=== PATIENT | female | born 2000 | race Two or more races ===

== ENCOUNTER 2019-02-19 16:54 | Observation (INO) | payer MEDICAID ==
[~2019-02-19] VITALS: Ht 152.4 cm; Wt 85.3 kg
[2019-02-19] MEDS ORDERED: PREN1TAB78 MT (17:08)
[2019-02-19] MEDS ORDERED: LACTATED RINGERS 1,000 ML IV SCH (17:30)
== END 2019-02-19 18:55 | disposition home or self-care (01) ==
LOC: 8 EST LDRP 16:54
PROVIDERS: ADMIT Obstetrics & Gynecology; ATTEND Obstetrics & Gynecology
DX: O36.8130 Decreased fetal movements, third trimester, not applicable or unspecified (principal); Z3A.39 39 weeks gestation of pregnancy
CPT/HCPCS: 76815; 76818; G0378

== ENCOUNTER 2019-02-21 06:07 | Inpatient (IN) | payer MEDICAID ==
[~2019-02-21] VITALS: Ht 152.4 cm; Wt 86.2 kg
[~2019-02-21 06:07] MED LIST: PREN1TAB78 MT
[2019-02-21] MEDS ORDERED: LACTATED RINGERS 1,000 ML IV STA (06:41)
[2019-02-21] MEDS ORDERED: CITRIC ACID/SODIUM CITRATE SOLN 30ML UDC PO ONE (07:00)
[2019-02-21] MEDS ORDERED: FENTANYL CITRATE/PF 50MCG/ML 2ML VIAL ONE (07:04)
[2019-02-21] MEDS ORDERED: OXYTOCIN 10 UNITS/ML 1ML ONE ×2 (07:04→10:24)
[2019-02-21] MEDS ORDERED: GLYCOPYRROLATE 0.2 MG/ML 2ML VIAL ONE (07:04)
[2019-02-21] MEDS ORDERED: METOCLOPRAMIDE HCL 10MG/2ML VIAL ONE (07:04)
[2019-02-21] MEDS ORDERED: PHENYLEPHRINE HCL 10 MG/ML 1ML (IV VIAL) IV ONE (07:04)
[2019-02-21] MEDS ORDERED: EPHEDRINE SULFATE 50MG/ML VIAL ONE (07:04)
[2019-02-21] MEDS ORDERED: ONDANSETRON HCL 4MG/2ML INJ ONE (07:04)
[2019-02-21] MEDS ORDERED: MORPHINE SULFATE/PF 1MG/ML 10ML AMP ONE (07:04)
[2019-02-21] MEDS ORDERED: CEFAZOLIN SODIUM 1000MG/VIAL ONE (07:05)
[2019-02-21] MEDS ORDERED: SODIUM CHLORIDE 0.9% 10ML VIAL ONE ×2 (07:05→07:10)
[2019-02-21 07:30] LABS: BASOPHILS % 0.3 % (0.0-2.0); EOSINOPHILS % 0.7 % (0.0-5.0); HEMOGLOBIN. 7.3 g/dL (12.0-16.0); LYMPHOCYTES % 23.1 % (20.0-50.0); MEAN CORPUSCULAR HEMOGLOBIN 18.6 pg (28.0-32.0); MEAN PLATELET VOLUME 8.7 fl (7.4-10.4); MONOCYTES % 5.7 % (2.0-8.0); NEUTROPHILS % 70.2 % (40.0-76.0); PLATELET 272 x1000/uL (130-400); RED BLOOD CELL COUNT 3.94 mill/uL (4.2-5.4); RED CELL DISTRIBUTION WIDTH 20.4 % (11.6-14.6)
[2019-02-21 07:39] LABS: INR 0.9; PARTIAL THROMBOPLASTIN TIME 23.8 sec (23.4-31.0); PROTHROMBIN TIME 9.4 sec (9.6-11.0)
[2019-02-21 07:54] LABS: PLATELET ESTIMATE NORMAL
[2019-02-21] MEDS ORDERED: LIDOCAINE HCL/PF 1% 10 MG/ML 5ML VIAL ONE (08:11)
[2019-02-21 08:19] LABS: HEPATITIS B SURFACE ANTIGEN NEGATIVE
[2019-02-21 08:48] LABS: CLARITY URINE CLEAR (CLEAR); COLOR URINE YELLOW (YELLOW); KETONES URINE NEGATIVE (NEGATIVE); LEUKOCYTE ESTERASE URINE TRACE (NEGATIVE); NITRITE URINE NEGATIVE (NEGATIVE); OCCULT BLOOD URINE NEGATIVE (NEGATIVE); PH URINE 6.5 (4.5-8.0); PROTEIN URINE NEGATIVE (NEGATIVE); SPECIFIC GRAVITY URINE 1.015 (1.005-1.030); UROBILINOGEN URINE 0.2 E.U./dL (0.2-1.0)
[2019-02-21 09:08] LABS: *AMPHETAMINES SCREEN URINE NEGATIVE (NEGATIVE); *BARBITURATES SCREEN URINE NEGATIVE (NEGATIVE); *BENZODIAZEPINES SCREEN URINE NEGATIVE (NEGATIVE); *COCAINE SCREEN URINE NEGATIVE (NEGATIVE)
[2019-02-21 09:09] LABS: CANNABINOID URINE SCREEN NEGATIVE (NEGATIVE); METHADONE URINE SCREEN NEGATIVE (NEGATIVE); OPIATES URINE SCREEN NEGATIVE (NEGATIVE)
[2019-02-21 09:11] LABS: PHENCYCLIDINE URINE SCREEN NEGATIVE (NEGATIVE)
[2019-02-21] MEDS ORDERED: DIPHENHYDRAMINE 50MG/ML VIAL ONE (10:31)
[2019-02-21] MEDS ORDERED: KETOROLAC 60MG/2ML VIAL IM ONE (10:49)
[2019-02-21] MEDS ORDERED: RHO(D) IMMUNE GLOBULIN 300 MCG/SYR IM PRN (11:00)
[2019-02-21] MEDS ORDERED: HYDROCODONE/ACETAMINOPHEN 5/325MG TABLET PO PRN (11:00)
[2019-02-21] MEDS ORDERED: IBUPROFEN 400MG TABLET PO PRN (11:00)
[2019-02-21] MEDS ORDERED: ONDANSETRON HCL 4MG/2ML INJ IV PRN (11:00)
[2019-02-21] MEDS ORDERED: LANOLIN OINT 7GM TUBE TOP PRN (11:00)
[2019-02-21] MEDS ORDERED: BUTORPHANOL TARTRATE 2 MG/ML VIAL IV PRN (11:45)
[2019-02-21] MEDS ORDERED: DIPHENHYDRAMINE 50MG/ML VIAL IV PRN (11:45)
[2019-02-21] MEDS ORDERED: NALOXONE HCL 0.4 MG/ML 1ML VIAL IV PRN (11:45)
[2019-02-21] MEDS: DEXT 5%/LR + PITOCIN 20UNITS/L 1,000 ML IV SCH ×2 (12:47→21:21)
[2019-02-21 14:29] VITALS: BP 124/70
[2019-02-21 15:00] VITALS: BP 117/65
[2019-02-21 19:45] VITALS: BP 104/62
[2019-02-21] MEDS ORDERED: DOCUSATE SODIUM 100MG CAPSULE PO SCH (21:00)
[2019-02-22] VITALS: BP 114/65
[2019-02-22] MEDS: KETOROLAC 30MG/ML VIAL IV SCH ×2 (01:13)
[2019-02-22 04:00] VITALS: BP 116/64
[2019-02-22 06:38] LABS: BASOPHILS % 0.6 % (0.0-2.0); EOSINOPHILS % 0.4 % (0.0-5.0); HEMATOCRIT. 22.6 % (36.0-48.0); LYMPHOCYTES % 18.4 % (20.0-50.0); MEAN CORPUSCULAR HEMOGLOBIN 18.5 pg (28.0-32.0); MEAN CORPUSCULAR VOLUME 61.4 fL (81.0-99.0); MEAN PLATELET VOLUME 8.6 fl (7.4-10.4); MONOCYTES % 5.8 % (2.0-8.0); NEUTROPHILS % 74.8 % (40.0-76.0); PLATELET 241 x1000/uL (130-400); RED BLOOD CELL COUNT 3.68 mill/uL (4.2-5.4); RED CELL DISTRIBUTION WIDTH 20.2 % (11.6-14.6)
[2019-02-22 06:43] LABS: HEMOGLOBIN. 6.8 g/dL (12.0-16.0)
[2019-02-22 08:00] VITALS: BP 116/63
[2019-02-22] MEDS: PRENATAL VIT/FE FUMARATE/FA TABLET PO SCH (09:25)
[2019-02-22] MEDS: ACETAMINOPHEN WITH CODEINE 300/30MG TABLET PO PRN ×2 (10:51→17:54)
[2019-02-22 16:00] VITALS: BP 115/59
[2019-02-22 19:30] VITALS: BP 120/64
[2019-02-23] MEDS: ACETAMINOPHEN WITH CODEINE 300/30MG TABLET PO PRN (03:27)
[2019-02-23 04:00] VITALS: BP 120/69
[2019-02-23 07:49] VITALS: BP 122/58
[2019-02-23] MEDS: PRENATAL VIT/FE FUMARATE/FA TABLET PO SCH (09:23)
== END 2019-02-23 13:05 | disposition home or self-care (01) | DRG 540 ==
LOC: 8 EST LDRP 06:07 → 8EST 14:25
PROVIDERS: ADMIT Obstetrics & Gynecology; ATTEND Obstetrics & Gynecology
PROC: 10D00Z1 Extraction of Products of Conception, Low, Open Approach (ICD-10-PCS; principal; 2019-02-21)
DX: O34.219 Maternal care for unspecified type scar from previous cesarean delivery (principal); O90.81 Anemia of the puerperium; Z37.0 Single live birth; Z3A.39 39 weeks gestation of pregnancy
CPT/HCPCS: 36415; 80305; 81003; 86592; 86703; 86762; 86850; 86900; 86920; 87340; 96360; 99281; J0595; J0690; J1200; J1885; J2274; J2370; J2405; J2590; J2765; J3010; J3490; A4315

== ENCOUNTER 2019-02-26 23:33 | Emergency (ER) | payer MEDICAID ==
[~2019-02-26] VITALS: Ht 152.4 cm; Wt 81.0 kg
[2019-02-27] MEDS ORDERED: ONDANSETRON HCL 4MG/2ML INJ IV SCH (01:10)
[2019-02-27] MEDS ORDERED: KETOROLAC 30MG/ML VIAL IV SCH (01:10)
[2019-02-27] MEDS ORDERED: SODIUM CHLORIDE 0.9% 1,000 ML IV ONE (01:10)
[2019-02-27 02:14] LABS: BASOPHILS % 0.5 % (0.0-2.0); EOSINOPHILS % 1.7 % (0.0-5.0); HEMATOCRIT. 23.2 % (36.0-48.0); LYMPHOCYTES % 22.7 % (20.0-50.0); MEAN CORPUSCULAR HEMOGLOBIN 18.8 pg (28.0-32.0); MEAN CORPUSCULAR VOLUME 62.6 fL (81.0-99.0); MEAN PLATELET VOLUME 8.8 fl (7.4-10.4); MONOCYTES % 5.5 % (2.0-8.0); NEUTROPHILS % 69.6 % (40.0-76.0); PLATELET 267 x1000/uL (130-400); RED BLOOD CELL COUNT 3.71 mill/uL (4.2-5.4); RED CELL DISTRIBUTION WIDTH 21.2 % (11.6-14.6)
[2019-02-27 02:18] LABS: PLATELET ESTIMATE NORMAL
[2019-02-27 02:20] LABS: CHLORIDE 108 mEq/L (98-107)
[2019-02-27] MEDS ORDERED: IOHEXOL-300 100 ML BOTTLE ONE (04:20)
[2019-02-27 04:24] LABS: CLARITY URINE CLOUDY (CLEAR); COLOR URINE YELLOW (YELLOW); KETONES URINE NEGATIVE (NEGATIVE); LEUKOCYTE ESTERASE URINE 1+ (NEGATIVE); NITRITE URINE POSITIVE (NEGATIVE); OCCULT BLOOD URINE 3+ (NEGATIVE); PROTEIN URINE NEGATIVE (NEGATIVE); SPECIFIC GRAVITY URINE 1.005 (1.005-1.030); UROBILINOGEN URINE 0.2 E.U./dL (0.2-1.0)
[2019-02-27 06:48] VITALS: BP 129/80
== END 2019-02-27 06:49 | disposition home or self-care (01) ==
LOC: ER 23:33
DX: N12 Tubulo-interstitial nephritis, not specified as acute or chronic (principal); R10.9 Unspecified abdominal pain; D64.9 Anemia, unspecified; Z98.890 Other specified postprocedural states
CPT/HCPCS: 36415; 74177; 76856; 80053; 81003; 83605; 83690; 84145; 84702; 85025; 87040; 87077; 87086; 87186; 96374; 99284; J1885; J2405; Q9967